=== PATIENT | male | born 1970 | race American Indian/Alaskan Native ===

== ENCOUNTER 2022-04-27 23:43 | Emergency (ER) | payer SELFPAY ==
[2022-04-28 01:49] VITALS: BP 149/88
== END 2022-04-28 14:00 | disposition left against medical advice (07) ==
LOC: ED 04-28 13:36
DX: F10.20 Alcohol dependence, uncomplicated (principal); Z53.21 Procedure and treatment not carried out due to patient leaving prior to being seen by health care provider